=== PATIENT | female | born 1965 | race African-American/Black ===

== ENCOUNTER → 2017-10-11 15:09 | Outpatient (CLI) | payer OTHER, SELFPAY ==
[2017-10-11 17:52] LABS: Anion Gap 8 (5-15); BUN 14 mg/dL (7-18); BUN/Creat Ratio 18.3 RATIO (10-20); Calcium,Total 8.5 mg/dL (8.5-10.1); Chloride 104 mmol/L (98-107); Creatinine, Serum 0.77 mg/dL (0.55-1.02); EST Glomerular Filtration Rate 84 mL/min (>60); Est Glom Filt Rate - Afr Amer 102 mL/min (>60); Glucose 161 mg/dL (74-106); Sodium Level 140 mmol/L (136-145); Thyroid Stim Hormone (TSH) 0.26 uIU/mL (0.358-3.74)
[2017-10-11 17:58] LABS: Vitamin D,25 Hydroxy 25.7 ng/mL (29.95-100.01)
== END ==
PROVIDERS: Family Provider Family Medicine; PCP Family Medicine; Visit Provider Family Medicine
DX: E11.9 Type 2 diabetes mellitus without complications (principal); E03.9 Hypothyroidism, unspecified; E55.9 Vitamin D deficiency, unspecified
CPT/HCPCS: 36415; 80048; 82306; 84439; 84443

== ENCOUNTER → 2018-09-07 16:34 | Outpatient (CLI) | payer OTHER, SELFPAY ==
[2018-09-07 11:27] VITALS: BMI 37.6
== END ==
PROVIDERS: Family Provider Family Medicine; PCP Family Medicine; Referring Provider Physician Assistant Medical; Visit Provider Physician Assistant Medical
DX: J02.9 Acute pharyngitis, unspecified (principal)
CPT/HCPCS: 87081

== ENCOUNTER → 2018-11-09 08:26 | Outpatient (CLI) | payer OTHER, SELFPAY ==
[2018-09-07 11:27] VITALS: BMI 37.6
[2018-11-09 12:47] LABS: ALB/GLOB Ratio 0.9 RATIO (0.9-2.4); AST(SGOT) 17 U/L (15-37); Alanine Aminotransfer ALT/SGPT 27 U/L (13-56); Albumin, Serum 3.8 g/dL (3.2-5.0); Alkaline Phosphatase 65 U/L (45-117); Anion Gap 7 (5-15); BUN 10 mg/dL (7-18); BUN/Creat Ratio 16.1 RATIO (10-20); Calcium,Total 8.6 mg/dL (8.5-10.1); Chloride 109 mmol/L (98-107); Creatinine, Serum 0.62 mg/dL (0.55-1.02); EST Glomerular Filtration Rate 106 mL/min (>60); Est Glom Filt Rate - Afr Amer 129 mL/min (>60); Globulin 4.1 g/dL (2.2-4.2); Glucose 113 mg/dL (74-106); Potassium 3.7 mmol/L (3.5-5.1); Protein, Total 7.9 g/dL (6.4-8.2); Sodium Level 140 mmol/L (136-145); T4 Free Direct 1.66 ng/dL (0.76-1.46); Thyroid Stim Hormone (TSH) < 0.01 uIU/mL (0.358-3.74)
[2018-11-09 13:10] LABS: Absolute Lymphocyte Count 5.47 X10^3/ul (0.83-4.51); Absolute Neutrophil Count 2.1 X10^3/uL (2.0-7.7); Basophil# 0.01 X10^3/uL; Basophil% 0.1 % (0-1); Eosinophil# 0.14 X10^3/uL; Eosinophils% 1.7 % (0-5); Hematocrit 42.1 % (37-47); Hemoglobin 13.7 g/dl (12.0-15.0); Lymphocyte # 5.47 X10^3/ul (4.0); Lymphocyte % 67.6 % (19-41); Mean Corp Hgb Conc 32.5 g/gl (32-36); Mean Corpuscular Volume 86.1 fL (81-99); Mean Platelet Vol. 11.3 fl (6.2-12.0); Monocyte# 0.39 X10^3/uL; Monocyte% 4.8 % (0-10); Neutrophil # 2.07 X10^3/uL (2.7-7.7); Neutrophil % 25.7 % (47-70); Platelet Count 241 K/mm3 (150-450); RBC Distribution Width CV 13.3 % (11.6-14.6); RBC Distribution Width SD 41.5 fl (35.1-43.9); Red Blood Count 4.89 M/mm3 (4.2-5.4); White Blood Count 8.1 K/mm3 (4.4-11.0)
[2018-11-09 14:28] LABS: Vitamin B12 > 2000 pg/mL (211-911); Vitamin D,25 Hydroxy 19.3 ng/mL (29.95-100.01)
[2018-11-09 14:51] LABS: Differential Indicated SCAN CRITERIA MET; POSITIVE COUNT NO; POSITIVE DIFFERENTIAL YES; POSITIVE MORPHOLOGY NO
[2018-11-09 14:58] LABS: Platelet Estimate ADEQUATE (ADEQ); Red Cell Morphology NORM C+C NORMAL (NORM C&C)
== END ==
PROVIDERS: Family Provider Family Medicine; PCP Family Medicine; Visit Provider Family Medicine
DX: E11.9 Type 2 diabetes mellitus without complications (principal); E03.9 Hypothyroidism, unspecified; E53.8 Deficiency of other specified B group vitamins; E55.9 Vitamin D deficiency, unspecified
CPT/HCPCS: 36415; 80053; 82306; 82607; 84439; 84443; 85025

== ENCOUNTER → 2019-01-05 08:45 | Outpatient (CLI) | payer OTHER, SELFPAY ==
[2018-09-07 11:27] VITALS: BMI 37.6
[2019-01-05 13:54] LABS: T4 Free Direct 1.17 ng/dL (0.76-1.46); Thyroid Stim Hormone (TSH) 0.11 uIU/mL (0.358-3.74)
== END ==
PROVIDERS: Family Provider Family Medicine; PCP Family Medicine; Visit Provider Family Medicine
DX: E03.9 Hypothyroidism, unspecified (principal); D72.820 Lymphocytosis (symptomatic); E55.9 Vitamin D deficiency, unspecified
CPT/HCPCS: 36415; 84439; 84443

== ENCOUNTER → 2019-01-13 10:12 | Outpatient (CLI) | payer OTHER, SELFPAY ==
[2018-09-07 11:27] VITALS: BMI 37.6
[2019-01-20 18:19] LABS: H. PYLORI STOOL AG Negative (Negative)
== END ==
PROVIDERS: Family Provider Family Medicine; PCP Family Medicine; Visit Provider Family Medicine
DX: R10.9 Unspecified abdominal pain (principal)

== ENCOUNTER → 2019-06-21 11:13 | Outpatient (CLI) | payer OTHER, SELFPAY ==
[2018-09-07 11:27] VITALS: BMI 37.6
[2019-06-23 16:59] LABS: EBV Acute VCA IgM < 36.0 U/mL (0.0-35.9); EBV Early Antigen IgG <9.0 U/mL (0.0-8.9)
== END ==
PROVIDERS: Family Provider Family Medicine; PCP Family Medicine; Referring Provider Family Medicine; Visit Provider Family Medicine
DX: J02.9 Acute pharyngitis, unspecified (principal); J06.9 Acute upper respiratory infection, unspecified
CPT/HCPCS: 36415; 86663; 86664; 86665; 87633

== ENCOUNTER → 2019-12-20 10:57 | Outpatient (CLI) | payer OTHER, SELFPAY ==
[2018-09-07 11:27] VITALS: BMI 37.6
--- NOTE | 2019-12-20 11:07 | CT_ITS ---
STUDY: CT ABDOMEN AND PELVIS WITH CONTRAST REASON FOR EXAM: Female, 54 years old. Severe abdomen pain and bloating x 2 months, worse after eating. Hx diabetes, hysterectomy, cholecystectomy. RADIATION DOSAGE (If Supplied By Facility): CTDIvol = ( 26.01 ) mGy, DLP = ( 1114.42 ) mGycm TECHNIQUE: Transaxial images were obtained from the dome of the diaphragm to the symphysis pubis without oral contrast. 100mL Isovue 370 was administered. Sagittal and coronal images were reconstructed. Individualized dose optimization techniques were used for this CT. COMPARISON: Comparison is made with prior examination dated April 14, 2014. FINDINGS: The visualized lung bases are unremarkable. The visualized portions of the heart are within normal limits. There is decreased attenuation of the liver consistent with steatosis. Mild hepatomegaly. The patient is status post cholecystectomy. Normal spleen. Normal pancreas. Normal bilateral adrenal glands. Normal right kidney. 1 cm cyst in the upper pole of the left kidney. Normal visualized stomach. Normal small intestine. Normal colon. The appendix is visualized and appears normal. Normal abdominal aorta. Normal inferior vena cava. Normal retroperitoneum. Normal urinary bladder. There is absence of the uterus consistent with a prior hysterectomy. Follicles are seen in both ovaries. There is evidence of prior umbilical hernia repair with a mesh. Normal osseous structures. CT/Abdomen/Pelvis WITH Contrast IMPRESSION: No acute abnormality is seen. Mild hepatomegaly with fatty infiltration of the liver. Status post cholecystectomy. Electronically Signed: Rahat Barnes, at 14:47 EDT , Service support ,
[2019-12-20 13:46] LABS: CREATININE FINGERSTICK 0.8 mg/dL (0.55-1.02); EGFR FINGERSTICK > 60.0000 mL/min (>60)
== END ==
PROVIDERS: PCP Family Medicine; Referring Provider Family Medicine; Visit Provider Family Medicine
DX: R10.9 Unspecified abdominal pain (principal); R14.0 Abdominal distension (gaseous)
CPT/HCPCS: 74177; Q9967

== ENCOUNTER → 2020-10-16 09:00 | Outpatient (CLI) | payer OTHER, SELFPAY ==
[2018-09-07 11:27] VITALS: BMI 37.6
[2020-10-16 10:19] LABS: Absolute Lymphocyte Count 4.41 X10^3/uL (0.83-4.51); Basophil# 0.03 X10^3/uL; Basophil% 0.4 % (0-1); Eosinophil# 0.19 X10^3/uL; Eosinophils% 2.4 % (0-5); Hemoglobin 13.3 g/dL (12.0-15.0); Lymphocyte # 4.41 X10^3/ul (4.0); Lymphocyte % 54.9 % (19-41); Mean Corp Hgb Conc 32.4 g/dL (32-36); Mean Corpuscular Volume 89.3 fL (81-99); Mean Platelet Vol. 10.7 fl (6.2-12.0); Monocyte# 0.35 X10^3/uL; Monocyte% 4.4 % (0-10); NRBC Flagged by Analyzer 0 % (0-5); Neutrophil # 3.03 X10^3/uL (2.7-7.7); Neutrophil % 37.7 % (47-70); Platelet Count 264 K/mm3 (150-450); RBC Distribution Width CV 13.6 % (11.6-14.6); RBC Distribution Width SD 44.1 fl (35.1-43.9); Red Blood Count 4.59 M/mm3 (4.2-5.4)
[2020-10-16 10:57] LABS: ALB/GLOB Ratio 1.2 RATIO (0.9-2.4); AST(SGOT) 14 U/L (15-37); Alanine Aminotransfer ALT/SGPT 23 U/L (13-56); Albumin, Serum 3.8 g/dL (3.2-5.0); Alkaline Phosphatase 58 U/L (45-117); Anion Gap 6 (5-15); BUN 10 mg/dL (7-18); BUN/Creat Ratio 15.4 RATIO (10-20); Chloride 106 mmol/L (98-107); Cholesterol 156 mg/dL (200); Creatinine, Serum 0.65 mg/dL (0.55-1.02); EST Glomerular Filtration Rate 100 mL/min (>60); Est Glom Filt Rate - Afr Amer 121 mL/min (>60); Globulin 3.3 g/dL (2.2-4.2); Glucose 113 mg/dL (74-106); High Density Lipoprotein 38 mg/dL; Potassium 3.9 mmol/L (3.5-5.1); Protein, Total 7.1 g/dL (6.4-8.2); Sodium Level 140 mmol/L (136-145); T4 Free Direct 1.08 ng/dL (0.76-1.46); Triglycerides 159 mg/dL; Very Low Density Lipoprotein 32 mg/dL (5-40)
[2020-10-16 11:32] LABS: Vitamin B12 590 pg/mL (211-911)
[2020-10-16 13:48] LABS: Vitamin D,25 Hydroxy 32.4 ng/mL
== END ==
LOC: MTLAB 09:02
PROVIDERS: PCP Family Medicine; Referring Provider Family Medicine; Visit Provider Family Medicine
DX: E11.9 Type 2 diabetes mellitus without complications (principal); E53.8 Deficiency of other specified B group vitamins; E55.9 Vitamin D deficiency, unspecified; D72.820 Lymphocytosis (symptomatic)
CPT/HCPCS: 36415; 80053; 80061; 82306; 82607; 84439; 84443; 85025

== ENCOUNTER 2020-10-18 18:54 | Emergency (ER) | payer OTHER, SELFPAY ==
[2018-09-07 11:27] VITALS: BMI 37.6
[2020-10-18 18:55] VITALS: BP 163/98; PULSE 106; RESP 20; TEMP 36.4; O2SAT 96; BMI 38.0
--- NOTE | 2020-10-18 19:55 | RAD_ITS ---
STUDY: X-RAY - RIGHT KNEE REASON FOR EXAM: Female, 55 years old. FELL IN PARKING LOT. PAIN MEDIAL TO PATELLA AND JUST INFERIOR TECHNIQUE: 4 view(s) of the knee. COMPARISON: None. FINDINGS: Normal visualized distal femur. Normal visualized proximal tibia and fibula. Normal proximal tibiofibular articulation. There is no demonstrated fracture. There is severe degenerative arthrosis of the medial femorotibial compartment with severe joint space narrowing. There is moderate degenerative arthrosis of the lateral femorotibial compartment with moderate joint space narrowing. There is severe degenerative arthrosis of the patellofemoral articulation. There is no demonstrated joint effusion. Mild soft tissue swelling is present anterior to the patellar tendon. RAD/Knee 4 or More Views IMPRESSION: 1. Degenerative arthrosis. Mild soft tissue swelling is present anterior to the patellar tendon. Electronically Signed: Claude Tamez MD at 21:00 EDT , Service support ,
--- NOTE | 2020-10-18 19:55 | RAD_ITS ---
STUDY: X-RAY - RIGHT SHOULDER REASON FOR EXAM: Female, 55 years old. Injury/Pain TECHNIQUE: 4 view(s) of the shoulder. COMPARISON: None. FINDINGS: There is severe degenerative arthrosis of the glenohumeral articulation. Normal acromioclavicular joint. Normal acromion. No visualized acute fracture or displaced bony fragment. The soft tissue structures are unremarkable. Normal visualized pulmonary apex. RAD/Shoulder min 2 Views IMPRESSION: Severe right shoulder DJD Electronically Signed: Claude Tamez MD at 21:01 EDT , Service support ,
--- NOTE | 2020-10-18 20:00 | ED.RN ---
[facility] was called when patient was triaged regarding workman's comp case. no information was on file for drug screen or follow up in [facility] intranet database for the patient's employer and actions to be taken. [facility] decided to come in to figure out next steps for this situation.
--- NOTE | 2020-10-18 21:46 | ED.DCSUM_ITS ---
- ER Visit Summary Date of Service: 10/18/20 Chief Complaint: Fall History of Present Illness: The patient is a 55 F who presents after a fall that occurred today. Patient states she was walking through the parking lot at work when she tripped and fell. Patient states she has pain in her right shoulder an d right knee. Patient also admits to some mild pain in her left knee, neck, and chest. Patient describes the pain as sharp and burning. Patient states her right knee feels weak. Patient denies any paresthesias. Patient denies any head injury or loss of consciousness. Patient denies any other injuries. Physical Examination: Vital signs are stable. Patient is afebrile. Patient is in no acute distress. Oral mucosa is pink and moist. Neck is supple. Trachea is midline. There is good range of motion of the cervical spine. Musculoskeletal exam reveals tenderness over the right shoulder and right knee. There is no obvious deformity noted. Range of motion was limited in all motions of the right shoulder and right knee. There is no effusion. There is no edema or ecchymosis. There is also some mild tenderness over the left knee. There is good range of motion. There is no laxity appreciated. There is no effusion. Test Results: X-rays of the right shoulder were obtained. There are 4 views. On my interpretation, there is no acute fracture. There is no dislocation. There is no soft tissue swelling. There are degenerative changes noted. Radiologist also interpreted the x-rays and agrees. X-rays of the right knee were obtained. There are 4 views. On my interpretation, there is no acute fracture. There is no dislocation. There is no soft tissue swelling. There are degenerative changes noted. Radiologist also interpreted the x-rays and agrees. Emergency Department Course and Treatment: Patient was advised of her findings. Patient was instructed to use ice to the area. Patient was instructed to follow-up with her primary care physician in 5 to 7 days. Patient was ins tructed to take Tylenol or ibuprofen as needed for pain. Patient and family understood and were agreeable with the plan. All questions were answered. Disposition: Discharge Impression: 1. Right shoulder contusion 2. Right knee contusion This note was generated with ulikeation software. It may contain incorrect words, spelling, and punctuation that were not noted in review of the chart prior to signing ED Disposition - Plan for ED Patient: Disposition: Home or Assisted Living Diagnosis: Contusion, knee, Contusion of shoulder Instructions: ED Contusion, Lower Extremity, ED Mechanical Fall, ED Shoulder Contusion Referrals: Damian Grace MD [Primary Care Provider] - 5-7 Days
[2020-10-18 22:07] VITALS: BP 135/86; PULSE 100; RESP 15; O2SAT 98
== END 2020-10-18 22:07 | disposition home or self-care (01) ==
PROVIDERS: Emergency Provider Emergency Medicine; PCP Family Medicine
DX: S40.011A Contusion of right shoulder, initial encounter (principal); S80.01XA Contusion of right knee, initial encounter; W01.0XXA Fall on same level from slipping, tripping and stumbling without subsequent striking against object, initial encounter; Y93.01 Activity, walking, marching and hiking; Y92.481 Parking lot as the place of occurrence of the external cause; Y99.9 Unspecified external cause status; E11.9 Type 2 diabetes mellitus without complications; Z79.899 Other long term (current) drug therapy; Z79.84 Long term (current) use of oral hypoglycemic drugs; Z79.82 Long term (current) use of aspirin
CPT/HCPCS: 73030; 73564; 99282

== ENCOUNTER 2021-01-14 08:30 | Outpatient (RCR) | payer OTHER, SELFPAY ==
[2020-12-06 09:11] VITALS: BMI 38.0
--- NOTE | 2020-12-20 10:12 | HP.OTEVAL_ITS ---
Patient's Visit Information ADELAIDA SCHOFIELD is a 55 year old F, referred to Occupational Therapy by MOHSEN Seaman, with a diagnosis of left MF trigger finger. Date of Evaluation: 12/19/20 Occupational Therapist: ZACHARY Leblanc/Ion, LILLY - Subjective This 55 year old female was seen for OT eval with dx of left MF trigger finger. Pt reported that she fell at her workplace; she reported that she tripped over a twig in the parking lot, but was unable to right herself. Pt noticed 2 days after that she was unable to extend and straighten her L Middle finger. Pt reported increase pain in the morning, then it increased during the day. Pt reported that typing increases the pain and decreases ROM. Pt reported an increase in numbness during the day. Pt stated that it catches when typing, and/or doing other tasks that require the use of her hands. - ADLs Comments: Typing, triggering with more flexion. 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 Goal:: pt will report a 50% reduction in numbness at the PIP joint by d/c. - Rehabilitation General Assessment: Pt demonstrating full ROM of left digits, noticeable trigger with the active movement of left MF. This limits pts ind. with ADLs and IADLS as well as work tasks. Pt would benefit skilled therapy services 2-3x a weeks for 4-6 weeks. Today, therapist educated pt on diagnosis and icing to decrease the trigger and increase the functionality of her MF. Kate JAVED, LILLY supervised, reviewed and approved doc. Rehabilitation Potential: Good - Anticipated Interventions A/AAROM/PROM, Strengthening, Triggerpoint Release, Modalities, Orthoses, Fine Motor Coord/Piyush, Home Program - Visit Plan Frequency: 2x /Week Duration: 4-6 Weeks TEXT: Thank you for the opportunity to evaluate your patient. For Medicare and Medicare HMO plans, please review the plan of care and approve it. It will need to be FAXED BACK to us at [phone] for Medicare purposes. Please let me know if there are questions or concerns regarding this plan of care. Physician Signature: Date:
== END 2021-01-14 19:00 | disposition home or self-care (01) ==
LOC: OT 08:30
PROVIDERS: PCP Family Medicine; Referring Provider Physician Assistant Surgical; Visit Provider Physician Assistant Surgical
DX: M65.332 Trigger finger, left middle finger (principal)
CPT/HCPCS: 97035; 97140; 97166

== ENCOUNTER 2021-05-15 13:10 | Emergency (ER) | payer OTHER, SELFPAY ==
[2021-05-15 13:12] VITALS: BP 163/106; PULSE 98; RESP 24; TEMP 37; O2SAT 99; BMI 32.8
--- NOTE | 2021-05-15 14:15 | RAD_ITS ---
STUDY: X-RAY CHEST REASON FOR EXAM: Female, 56 years old. Chest pain. Headaches. TECHNIQUE: Single AP portable view of the chest. COMPARISON: Comparison is made with prior study dated 07/22/2016. FINDINGS: EKG electrodes are seen. The lungs are clear and expanded. There is no demonstrated pleural abnormality. Normal size heart. Normal mediastinum and iliana. Normal visualized pulmonary arteries. There is atherosclerotic tortuosity of the aortic arch and descending thoracic aorta. There are diffuse degenerative changes of the visualized thoracic spine. There is degenerative osteoarthritis of the bilateral shoulders. There is no demonstrated abnormality of the visualized soft tissue structures of the upper abdomen. RAD/Chest 1 View (Portable) IMPRESSION: Stable examination. No acute abnormality is seen. Electronically Signed: Rahat Barnes MD at 15:05 EDT , Service support ,
--- NOTE | 2021-05-15 14:15 | EKG12_ITS ---
Test Reason : SOB Blood Pressure : / mmHG Vent. Rate : 075 BPM Atrial Rate : 075 BPM P-R Int : 172 ms QRS Dur : 086 ms QT Int : 404 ms P-R-T Axes : 052 -29 002 degrees QTc Int : 451 ms Normal sinus rhythm with sinus arrhythmia Normal ECG Confirmed by RODRIGO BUTCHER, RIVKA ([id number]), metropolitan editor ROMI BLACKMON ([id number]) on 05/19/2021 10:16:46 A M Referred By: WILLY Confirmed By:LEE WALLACE MD
--- NOTE | 2021-05-15 14:17 | EDS_ITS ---
HPI History of Present Illness Chief Complaint: Shortness of Breath Informant: patient Narrative Narrative: Very pleasant 56-year-old female presents to the emergency department chief complaint of dyspnea. Patient states that yesterday morning she woke with a headache and a sensation that she could not take a deep breath. She states that that has continued onset today. 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 She went got tested this morning and her Covid and influenza swabs were negative. She denies any significant cough, no chest pain, no fevers. She has not felt like this in the past. She has a history of Graves' disease is currently on levothyroxine. Non- smoker. It is noted that the patient underwent cardiac catheterization in 2017 with angiographically normal arteries. [facility] Medical History Acute frontal sinusitis, unspecified Diabetes Lab test negative for COVID-19 virus Shortness of breath Thyroid disease URI (upper respiratory infection) Home Medications metformin 500 mg PO BID 07/22/16 [History Last Taken 07/20/16] cyanocobalamin (vitamin B-12) 2,500 mcg PO QODAY 10/18/20 [History Last Taken Unknown] cholecalciferol (vitamin D3) 10 mcg (400 unit) capsule 10 mcg PO QODAY 10/22/20 [History Last Taken Unknown] levothyroxine [Synthroid] 175 mcg PO DAILY 05/15/21 [History Last Taken Unknown] multivitamin 1 tab PO DAILY 05/15/21 [History Last Taken Unknown] vitamin B complex 1 tab PO DAILY 05/15/21 [History Last Taken Unknown] Allergy/AdvReac Type Severity Reaction Status Date / Time acetaminophen [From Vicodin] Allergy Unknown Verified 05/15/21 12:25 hydrocodone Allergy Swelling Verified 05/15/21 12:25 hydromorphone HCl Allergy Unknown Verified 05/15/21 12:25 [From Dilaudid] oxycodone [Oxycodone] Allergy Swelling Verified 05/15/21 12:25 Family History Mother Heart murmur Thyroid disorder Father Colon cancer Brother Colon cancer Other Hypertension Surgical History H/O: section History of cholecystectomy History of hernia repair History of hysterectomy History of thyroidectomy Social History (Updated 05/15/21 @ 14:[address] Naren Hudson DO) Smoking Status: Never smoker alcohol intake: never substance use type: does not use ROS ROS ED Constitutional Constitutional ED: Denies chills, fever(s), sweats or weight loss Eyes Eyes: Denies change in vision or diplopia ENT ENT ED: Denies ear pain, rhinorrhea or sore throat Cardiovascular Cardiovascular: Denies chest pain, orthopnea, palpitations or racing heartbeat Respiratory/Chest Respiratory/Chest: Reports dyspnea and dyspnea on exertion; Denies cough or orthopnea Gastrointestinal Gastrointestinal: Denies abdominal pain, diarrhea, nausea or vomiting Genitourinary Genitourinary ED: Denies dysuria, hematuria or urinary frequency Musculoskeletal Musculoskeletal: Denies arthralgias or myalgias Integumentary Denies abscess or rash Neurologic Neurologic: Denies headache(s) or weakness Psychiatric Psychiatric: Denies anxiety, depression, suicidal ideation or suicidal thoughts Endocrine Endocrinology: Denies polydipsia, polyphagia or polyuria Allergic/Immunologic Allergic/Immunologic ED: Denies mouth swelling, tongue swelling or urticaria EXAM Physical Exam Const Vital Signs: 05/15/21 13:12 05/15/21 14:51 05/15/21 15:46 Temperature 98.6 F Temperature Source Temporal Pulse Rate 98 82 Respiratory Rate 24 H 19 H Respiratory Effort Short of Breath Respiratory Depth Normal Respiratory Pattern Normal Normal Blood Pressure 163/106 H Blood Pressure Mean 125 Pulse Ox 99 Oxygen Delivery Method Room Air Room Air Positive well nourished and well developed General Appearance ED: well developed HEENT Reports normocephalic, head/scalp atraumatic, TM's clear and moist mucous membranes atraumatic Tympanic Membrane ED: Yes TM's clear Eyes PERRL and EOMs intact bilaterally Neck no lymphadenopathy, supple and no JVD Resp normal respiratory effort and clear to auscultation bilaterally Cardio regular rate, regular rhythm and no murmurs GI normal to inspection, nondistended, normoactive bowel sounds and non-tender Auscultation: normoactive bowel sounds Palpation: soft Back/Spine no CVA tenderness, normal ROM and normal to inspection Extremity normal to inspection General Extremety ED: Negative for edema General Extremity: Negative for edema Neuro oriented x3 and CN's II-XII intact bilaterally Sensorium / Orientation: alert Motor Exam: strength 5/5 throughout Psych mental status grossly normal Mood & Affect: Negative for depressed or tearful Skin no rashes or lesions noted and no wounds MDM MDM MDM Narrative Medical decision making narrative: My interpretation of the chest x-ray is no acute process White count 9.7 hemoglobin 14.1 with platelet count of 280. D-dimer is negative. TSH 0.63. Troponin 45 glucose 144. Patient had no events on the monitor EKG is grossly unchanged from 4 years ago. She ambulates without hypoxemia or significantly labored breathing. She had no change in her symptoms with a DuoNeb. At this point I do not see a clear etiology for the patient's chief complaint of inability to take a deep breath. I do not see anything the obvious emergent that would require hospitalization. She has follow-up with her primary care doctor tomorrow. Lab Data Attestation: I reviewed the patient's lab results. Labs: Laboratory Results - last 24 hr 05/15/21 05/15/21 05/15/21 14:31 14:31 14:31 WBC 9.7 RBC 4.94 Hgb 14.1 Hct 43.2 MCV 87.4 MCH 28.5 MCHC 32.6 RDW Std Deviation 42.5 RDW Coeff of Bigg 13.3 Plt Count 280 MPV 10.5 Immature Gran % (Auto) 0.200 Neut % (Auto) 39.5 L Lymph % (Auto) 52.0 H Quay % (Auto) 5.7 Eos % (Auto) 2.3 Baso % (Auto) 0.3 Absolute Neuts (auto) 3.8 Absolute Lymphs (auto) 5.05 H Nucleated RBC % 0 Differential Comment SCANNED D-Dimer Quant (PE/DVT) <= 0.27 Sodium 140 Potassium 3.5 Chloride 105 Carbon Dioxide 26.0 Anion Gap 9 BUN 9 Creatinine 0.75 Estim Creat Clear Calc 69.28 Est GFR (MDRD) Af Amer 103 Est GFR (MDRD) Non-Af 86 BUN/Creatinine Ratio 12.1 Glucose 144 H Calcium 8.9 Total Bilirubin 0.50 AST 14 L ALT 27 Alkaline Phosphatase 70 Troponin I High Sens 45 Total Protein 8.1 Albumin 3.7 Globulin 4.4 H Albumin/Globulin Ratio 0.8 L TSH 0.63 Radiography Diagnostic Testing: Clinical Impression(s) from Imaging Studies Chest X-Ray 05/15/21 14:15 IMPRESSION: Stable examination. No acute abnormality is seen. Electronically Signed: Rahat Barnes MD at 15:05 EDT , Service support , EKG Initial EKG: Attestation: I personally reviewed and interpreted this EKG as follows: Comments: Normal sinus rhythm with a ventricular rate of 75 bpm. Prior EKG tracings: available for review Prior: Unchanged Discharge Plan Triage Chief Complaint: Shortness of Breath ED Provider: Naren Hudson Dx/Rx/DC Orders Clinical Impression: Acute dyspnea Instructions: ED Dyspnea Prescriptions: No Action cholecalciferol (vitamin D3) 10 mcg (400 unit) capsule 10 mcg PO QODAY RF: 0 metformin 500 MG tablet,ER samantha.retention 24 hr 500 mg PO BID RF: 0 cyanocobalamin (vitamin B-12) 2,500 MCG lozenge 2,500 mcg PO QODAY RF: 0 multivitamin Tablet 1 tab PO DAILY RF: 0 levothyroxine [Synthroid] 175 mcg tablet 175 mcg PO DAILY RF: 0 vitamin B complex Tablet 1 tab PO DAILY RF: 0 Primary Care Provider: Damian Grace Referrals: Damian Grace MD [Primary Care Provider] - Activity Restrictions/Additional Instructions: Your chest x-ray was normal. EKG has been unchanged since 2017 and a negative troponin level. Your D-dimer was negative. Your TSH was 0.63. Your CBC and CMP showed a glucose of 144 but otherwise negative. Disposition Disposition: Home, Self Care
[2021-05-15 14:45] LABS: Absolute Lymphocyte Count 5.05 X10^3/uL (0.83-4.51); Absolute Neutrophil Count 3.8 X10^3/uL (2.0-7.7); Basophil# 0.03 X10^3/uL; Basophil% 0.3 % (0-1); Eosinophil# 0.22 X10^3/uL; Eosinophils% 2.3 % (0-5); Hematocrit 43.2 % (37-47); Hemoglobin 14.1 g/dL (12.0-15.0); Lymphocyte # 5.05 X10^3/ul (0.83-4.51); Mean Corp Hgb Conc 32.6 g/dL (32-36); Mean Corpuscular Hgb 28.5 pg (27.0-32.0); Mean Corpuscular Volume 87.4 fL (81-99); Mean Platelet Vol. 10.5 fl (6.2-12.0); Monocyte# 0.55 X10^3/uL; Monocyte% 5.7 % (0-10); NRBC Flagged by Analyzer 0 % (0-5); Neutrophil # 3.84 X10^3/uL (2.7-7.7); Neutrophil % 39.5 % (47-70); POSITIVE DIFFERENTIAL YES; Platelet Count 280 K/mm3 (150-450); RBC Distribution Width CV 13.3 % (11.6-14.6); RBC Distribution Width SD 42.5 fl (35.1-43.9); Red Blood Count 4.94 M/mm3 (4.2-5.4); White Blood Count 9.7 K/mm3 (4.4-11.0)
[2021-05-15 14:50] LABS: Differential Indicated SCAN CRITERIA MET
[2021-05-15 14:51] VITALS: O2SAT 99
[2021-05-15 15:04] LABS: D-Dimer Quantitative (DVT/PE) <= 0.27 FEU/ug/m (0.27-0.49)
[2021-05-15 15:08] LABS: ALB/GLOB Ratio 0.8 RATIO (0.9-2.4); AST(SGOT) 14 U/L (15-37); Alanine Aminotransfer ALT/SGPT 27 U/L (13-56); Albumin, Serum 3.7 g/dL (3.2-5.0); Alkaline Phosphatase 70 U/L (45-117); Anion Gap 9 (5-15); BUN 9 mg/dL (7-18); BUN/Creat Ratio 12.1 RATIO (10-20); Calcium,Total 8.9 mg/dL (8.5-10.1); Chloride 105 mmol/L (98-107); Creatinine, Serum 0.75 mg/dL (0.55-1.02); EST Glomerular Filtration Rate 86 mL/min (>60); Est Glom Filt Rate - Afr Amer 103 mL/min (>60); Estimated Creatinine Clearance 69.28 ml/min; Globulin 4.4 g/dL (2.2-4.2); Glucose 144 mg/dL (74-106); Potassium 3.5 mmol/L (3.5-5.1); Protein, Total 8.1 g/dL (6.4-8.2); Sodium Level 140 mmol/L (136-145); Thyroid Stim Hormone (TSH) 0.63 uIU/mL (0.358-3.74); Troponin-I HS 45 pg/mL (3.0-54.0)
[2021-05-15 15:20] VITALS: O2SAT 99
[2021-05-15 15:43] LABS: Differential Comment SCANNED
[2021-05-15] MEDS: Ipratropium/Albuterol Sulfate 3 ML AMPUL.NEB INHALATION (15:45)
[2021-05-15 15:46] VITALS: PULSE 82; RESP 19
[2021-05-15 16:07] VITALS: BP 151/107; PULSE 88; RESP 16; O2SAT 99
== END 2021-05-15 16:08 | disposition home or self-care (01) ==
PROVIDERS: Emergency Provider Emergency Medicine; PCP Family Medicine
DX: R06.02 Shortness of breath (principal); E11.9 Type 2 diabetes mellitus without complications; E05.00 Thyrotoxicosis with diffuse goiter without thyrotoxic crisis or storm; Z79.84 Long term (current) use of oral hypoglycemic drugs; Z20.822 Contact with and (suspected) exposure to COVID-19
CPT/HCPCS: 71045; 80053; 84443; 84484; 85025; 85379; 93005; 94640; 99284; A4216

== ENCOUNTER → 2021-05-16 | Outpatient (CLI) | payer OTHER, SELFPAY | END | disposition home or self-care (01) | LOC: LABSPEC 12:57 | PROVIDERS: PCP Family Medicine; Visit Provider Family Medicine | DX: Z20.822 Contact with and (suspected) exposure to COVID-19 (principal) | CPT/HCPCS: 87635; U0005; U0003 ==

== ENCOUNTER → 2022-03-23 | Outpatient (CLI) | payer OTHER, SELFPAY ==
[2022-03-23 12:22] LABS: Absolute Lymphocyte Count 4.35 X10^3/uL (0.83-4.51); Absolute Neutrophil Count 3.1 X10^3/uL (2.0-7.7); Basophil# 0.04 X10^3/uL; Basophil% 0.5 % (0-1); Eosinophils% 2.5 % (0-5); Hematocrit 43.9 % (37-47); Lymphocyte # 4.35 X10^3/ul (0.83-4.51); Lymphocyte % 54.4 % (19-41); Mean Corp Hgb Conc 31.9 g/dL (32-36); Mean Corpuscular Hgb 28.5 pg (27.0-32.0); Mean Corpuscular Volume 89.2 fL (81-99); Mean Platelet Vol. 11.3 fl (6.2-12.0); Monocyte# 0.34 X10^3/uL; Monocyte% 4.3 % (0-10); NRBC Flagged by Analyzer 0 % (0-5); Neutrophil # 3.06 X10^3/uL (2.7-7.7); Neutrophil % 38.2 % (47-70); Platelet Count 253 K/mm3 (150-450); RBC Distribution Width CV 13.2 % (11.6-14.6); RBC Distribution Width SD 43.8 fl (35.1-43.9); Red Blood Count 4.92 M/mm3 (4.2-5.4)
[2022-03-23 15:52] LABS: Anion Gap 9 (5-15); BUN 15 mg/dL (7-18); Calcium,Total 9.4 mg/dL (8.5-10.1); Chloride 106 mmol/L (98-107); Creatinine, Serum 0.79 mg/dL (0.55-1.02); EST Glomerular Filtration Rate 80 mL/min (>60); Est Glom Filt Rate - Afr Amer 97 mL/min (>60); Glucose 197 mg/dL (74-106); Magnesium 1.9 mg/dL (1.6-2.6); Potassium 3.9 mmol/L (3.5-5.1); Sodium Level 140 mmol/L (136-145); T4 Free Direct 0.95 ng/dL (0.76-1.46); Thyroid Stim Hormone (TSH) 0.48 uIU/mL (0.358-3.74)
== END | disposition home or self-care (01) ==
LOC: MTLAB 10:51
PROVIDERS: PCP Family Medicine; Referring Provider Family Medicine; Visit Provider Family Medicine
DX: R00.2 Palpitations (principal); E11.65 Type 2 diabetes mellitus with hyperglycemia; E03.9 Hypothyroidism, unspecified
CPT/HCPCS: 36415; 80048; 83735; 84439; 84443; 85025

== ENCOUNTER → 2022-10-29 | Outpatient (CLI) | payer OTHER, SELFPAY ==
[2022-10-29 10:03] LABS: Absolute Lymphocyte Count 4.64 X10^3/uL (0.83-4.51); Absolute Neutrophil Count 2.7 X10^3/uL (2.0-7.7); Basophil# 0.05 X10^3/uL; Basophil% 0.6 % (0-1); Eosinophil# 0.19 X10^3/uL; Eosinophils% 2.4 % (0-5); Hematocrit 43.6 % (37-47); Hemoglobin 13.9 g/dL (12.0-15.0); Lymphocyte # 4.64 X10^3/ul (0.83-4.51); Lymphocyte % 57.8 % (19-41); Mean Corp Hgb Conc 31.9 g/dL (32-36); Mean Corpuscular Volume 90.8 fL (81-99); Mean Platelet Vol. 11.1 fl (6.2-12.0); Monocyte# 0.41 X10^3/uL; Monocyte% 5.1 % (0-10); NRBC Flagged by Analyzer 0 % (0-5); Neutrophil # 2.72 X10^3/uL (2.7-7.7); Neutrophil % 33.9 % (47-70); Platelet Count 266 K/mm3 (150-450); RBC Distribution Width CV 13.4 % (11.6-14.6); RBC Distribution Width SD 45.1 fl (35.1-43.9)
[2022-10-29 10:16] LABS: Vitamin B12 494 pg/mL (211-911); Vitamin D,25 Hydroxy 50.5 ng/mL
[2022-10-29 10:23] LABS: ALB/GLOB Ratio 1.1 RATIO (0.9-2.4); AST(SGOT) 17 U/L (15-37); Alanine Aminotransfer ALT/SGPT 23 U/L (13-56); Albumin, Serum 3.7 g/dL (3.2-5.0); Alkaline Phosphatase 48 U/L (45-117); Anion Gap 2 (5-15); BUN 9 mg/dL (7-18); BUN/Creat Ratio 10.8 RATIO (10-20); Calcium,Total 8.7 mg/dL (8.5-10.1); Chloride 108 mmol/L (98-107); Cholesterol 149 mg/dL (200); Creatinine, Serum 0.83 mg/dL (0.55-1.02); EST Glomerular Filtration Rate 75 mL/min (>60); Est Glom Filt Rate - Afr Amer 91 mL/min (>60); Globulin 3.4 g/dL (2.2-4.2); Glucose 122 mg/dL (74-106); High Density Lipoprotein 36 mg/dL; Potassium 3.8 mmol/L (3.5-5.1); Protein, Total 7.1 g/dL (6.4-8.2); Sodium Level 140 mmol/L (136-145); T4 Free Direct 1.29 ng/dL (0.76-1.46); Thyroid Stim Hormone (TSH) 1.17 uIU/mL (0.358-3.74); Triglycerides 137 mg/dL; Very Low Density Lipoprotein 27 mg/dL (5-40)
== END | disposition home or self-care (01) ==
LOC: MTLAB 07:10
PROVIDERS: PCP Nurse Practitioner Family; Referring Provider Nurse Practitioner Family; Visit Provider Nurse Practitioner Family
DX: Z00.00 Encounter for general adult medical examination without abnormal findings (principal); E03.9 Hypothyroidism, unspecified; E53.8 Deficiency of other specified B group vitamins; E55.9 Vitamin D deficiency, unspecified
CPT/HCPCS: 36415; 80053; 80061; 82306; 82607; 84439; 84443; 85025

== ENCOUNTER → 2023-03-09 | Outpatient (CLI) | payer OTHER, SELFPAY | END | disposition home or self-care (01) | LOC: BFHLAB 13:49 → LABSPEC 13:50 | PROVIDERS: PCP Nurse Practitioner Family; Referring Provider Nurse Practitioner Family; Visit Provider Nurse Practitioner Family | DX: J06.9 Acute upper respiratory infection, unspecified (principal) | CPT/HCPCS: 87635 ==

== ENCOUNTER → 2024-09-05 | Outpatient (CLI) | payer OTHER, SELFPAY ==
[2024-09-05 11:01] LABS: Absolute Neutrophil Count 2.8 X10^3/uL (2.0-7.7); Basophil# 0.04 X10^3/uL; Basophil% 0.5 % (0-1); Eosinophil# 0.21 X10^3/uL; Eosinophils% 2.7 % (0-5); Hematocrit 43.8 % (37-47); Mean Corpuscular Hgb 28.5 pg (27.0-32.0); Monocyte% 5.1 % (0-10); NRBC Flagged by Analyzer 0 % (0-5); Neutrophil # 2.79 X10^3/uL (2.7-7.7); Neutrophil % 35.4 % (47-70); Platelet Count 274 K/mm3 (150-450); RBC Distribution Width CV 13.6 % (11.6-14.6); RBC Distribution Width SD 44.5 fl (35.1-43.9); Red Blood Count 4.92 M/mm3 (4.2-5.4); White Blood Count 7.9 K/mm3 (4.4-11.0)
[2024-09-06 00:05] LABS: ALB/GLOB Ratio 1.2 RATIO (0.9-2.4); AST(SGOT) 22 U/L (<=31); Alanine Aminotransfer ALT/SGPT 20 U/L (<=34); Albumin, Serum 4.2 g/dL (3.5-5.0); Alkaline Phosphatase 69 U/L (35-104); Anion Gap 14 (5-15); BUN 13 mg/dL (4-19); Calcium 9.5 mg/dL (7.6-11.0); Carbon Dioxide 23.9 mmol/L (22.0-29.0); Chloride 102 mmol/L (96-108); Cholesterol 160 mg/dL (<=200); Creatinine, Serum 0.7 mg/dL (0.6-1.0); EST Glomerular Filtration Rate 101 (>60); Globulin 3.4 g/dL (2.2-4.2); Glucose 160 mg/dL (70-99); High Density Lipoprotein 38 mg/dL; Potassium 4.2 mmol/L (3.3-5.1); Protein, Total 7.6 g/dL (5.9-8.4); Sodium Level 140 mmol/L (133-145); Thyroid Stim Hormone (TSH) 0.394 uIU/mL (0.300-4.200); Total Bilirubin 0.63 mg/dL (0.00-1.30); Triglycerides 132 mg/dL; Very Low Density Lipoprotein 26 mg/dL (5-40); Vitamin D,25 Hydroxy 26.6 ng/mL (30-100)
== END | disposition home or self-care (01) ==
LOC: MTLAB 07:51
PROVIDERS: PCP Nurse Practitioner Family; Referring Provider Nurse Practitioner Family; Visit Provider Nurse Practitioner Family
DX: Z00.01 Encounter for general adult medical examination with abnormal findings (principal); E03.9 Hypothyroidism, unspecified; E55.9 Vitamin D deficiency, unspecified
CPT/HCPCS: 36415; 80053; 80061; 82306; 84439; 84443; 85025

== ENCOUNTER → 2024-09-14 | Outpatient (CLI) | payer OTHER, SELFPAY ==
[2024-09-16 15:08] LABS: H. PYLORI STOOL AG Negative (Negative)
== END | disposition home or self-care (01) ==
LOC: LABSPEC 11:25
PROVIDERS: PCP Nurse Practitioner Family; Visit Provider Nurse Practitioner Family
DX: R10.9 Unspecified abdominal pain (principal); R19.7 Diarrhea, unspecified
CPT/HCPCS: 87338

== ENCOUNTER 2024-12-20 13:37 | Day surgery (SDC) | payer OTHER, SELFPAY ==
[2024-12-20] VITALS (7 sets, daily range): BP systolic 116–127; BP diastolic 79–90; PULSE 88–97; RESP 16–18; TEMP 36.2–36.8; O2SAT 98–100; BMI 36.8
--- NOTE | 2024-12-20 13:42 | PRE.ANES_ITS ---
ASA Classification* ASA Classification ASA Classification: 2 Assessment & Plan Anesthesia* Anesthesia Assessment Anesthesia Assessment: Discussed sedation and/or anesthesia options, risks, benefits, and alternatives with patient/parents/legal guardian/POA. Questions invited. The patient/parents/legal guardian/POA seems to understand and agrees to proceed with anesthesia plan. Reviewed the physical assessment, medical history, allergy history and patient home medications list prior to surgery/procedure/anesthetic and documented any changes. Performed airway and anesthesia risk assessments. Anesthesia Type Anesthesia Type: MAC Anesthesia Focused Assessment* Airway Assessment Mouth opens: >3 cm Mallampati Score: II Labs Anesthesia Preop lab: CBC WBC 7.9 K/mm3 (4.4-11.0) 09/05/24 08:00 09/05/24 RBC 4.92 M/mm3 (4.2-5.4) 09/05/24 08:00 09/05/24 Hgb 14.0 g/dL (12.0-15.0) 09/05/24 08:00 09/05/24 Hct 43.8 % (37-47) 09/05/24 08:00 09/05/24 Plt Count 274 K/mm3 (150-450) 09/05/24 08:00 09/05/24 CHEMISTRY Potassium 4.2 mmol/L (3.3-5.1) 09/05/24 08:00 09/05/24 Sodium 140 mmol/L (133-145) 09/05/24 08:00 09/05/24 Magnesium 1.9 mg/dL (1.6-2.6) 03/23/22 10:53 03/23/22 BUN 13 mg/dL (4-19) 09/05/24 08:00 09/05/24 Creatinine 0.7 mg/dL (0.6-1.0) 09/05/24 08:00 09/05/24 Glucose 160 mg/dL (70-99) H 09/05/24 08:00 09/05/24 TSH 0.394 uIU/mL (0.300-4.200) 09/05/24 08:00 08/13 12/03 COAG Pre-Assessment Diagnosis/Proposed Procedure Planned Operative Procedure(s): EGD/CSCOPE Anesthesia History Anesthesia History - [employer]: Anesthesia History - [employer] Hx Hospitalization No 12/15/24 10:44 Any Problems With Anesthesia Yes: 1993 THYROIDECTOMY/ 12/15/24 10:44 PARALYZED AND COULD FEEL INCISION/NO PROBLEMS SINCE THEN Cholinesterase deficiency No 12/15/24 10:44 You/Your Family Experience No 12/15/24 10:44 fever (hyperthermia) with Relationship Recent Exposure to Contagious Disease Does patient have nerve No 12/15/24 10:44 stimulator Patient instructed to have device shut off --Does patient have Pacemaker or ICD? When Was Last Pacemaker Check QUESTION #4 FULL TEXT: You/Your Family Experience fever (hyperthermia) with Anesthesia Last Oral Intake Last Oral intake: Last Oral Intake NPO since Meds taken in AM with sips of water? Meds patient instructed to take am of surgery PONV PONV - [employer]: PONV - [employer] Female Yes 12/15/24 10:44 HX of Motion Sickness No 12/15/24 10:44 HX of N/V After Surgery No 12/15/24 10:44 Non-Smoker Yes 12/15/24 10:44 Duration of Surgery greater No 12/15/24 10:44 than 60 minutes Number of Risk Factors 2 12/15/24 10:44 PONV Score Moderate Risk 12/15/24 10:44 Height & Weight Height & Weight: Anesthesia: Height & Weight Height 5 ft 3 in 05/15/21 13:12 Respiratory Assessment Respiratory Assessment - [employer]: Respiratory Tract Infection Hx - [employer] Hx Respiratory Tract Infection No 12/15/24 10:44 STOP Sleep Apnea STOP Sleep Apnea - [employer]: STOP Sleep Apnea - [employer] Hx Hypertension No 12/15/24 10:44 Hx Sleep Apnea No 12/15/24 10:44 CPAP BIPAP Do you snore loudly (louder Yes 12/15/24 10:44 than talking or can be heard Do you often feel tired/ No 12/15/24 10:44 fatigued/ sleepy during daytime? Has anyone observed you stop No 12/15/24 10:44 breathing during sleep? STOP Results Negative 12/15/24 10:44 QUESTION #5 FULL TEXT : Do you snore loudly (louder than talking or can be heard through closed doors)? 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 Specify any problems Hx of Preganancy in last 3 No 12/15/24 10:44 Months Nurse Filling Out Transfusion DSCHRIBER 12/15/24 10:44 & Questions: Date: 12/15/24 12/15/24 10:44 Time: 10:47 12/15/24 10:44 Patient unable to answer at this time (ie. confused, unrespo /Reproduction History /Reproductive History - [employer]: /Reproductive Hx- [employer] Hx Now No 12/15/24 10:44 Gestational Age (in weeks): EDC: Hx Hx Para Hx Section SAB No 12/15/24 10:44 PFSH Medical History Wears glasses Post-menopausal Diabetes Fatty liver High cholesterol Migraine headache Gastric reflux Leg cramps Non-smoker History of stress test IBS (irritable bowel syndrome) Hypothyroidism COVID-19 Encounter for screening for COVID-19 Shortness of breath Lab test negative for COVID-19 virus Acute frontal sinusitis, unspecified URI (upper respiratory infection) Thyroid disease Diabetes Home Medications ?Medication ?Instructions ?Recorded ?Last Taken ?Type metformin 500 mg 24 hr 500 mg PO DAILY 07/22/1603/28 History tablet,extended release (gastric retention) cyanocobalamin (vitamin B-12) 2,500 mcg PO QODAY 10/18 Unknown History 2,500 mcg sublingual lozenge cholecalciferol (vitamin D3) 10 10 mcg PO QODAY Unknown History mcg (400 unit) capsule levothyroxine 175 mcg tablet 175 mcg PO DAILY 05/15/21 Unknown History (Synthroid) multivitamin 1 tab PO MOWEFR 05/15/21 Unk nown History vitamin B complex 1 tab PO BROWN 05/15/21 Unknown History krill oil 500 mg capsule 500 mg PO QDAY 09/13/24 Unkn own History Allergy/AdvReac Type Severity Reaction Status Date / Time acetaminophen (From Vicodin) Allergy Unknown Verified 12/15/24 10:42 hydrocodone Allergy Swelling Verified 12/15/24 10:42 hydromorphone HCl (From Allergy Unknown Verified 12/15/24 10:42 Dilaudid) oxycodone (Oxycodone) Allergy Swelling Verified 12/15/24 10:42 Family History Mother Heart murmur Thyroid disorder Father Colon cancer Brother Colon cancer Other Hypertension Surgical History History of cardiac catheterization History of esophagogastroduodenoscopy (EGD) Hx of colonoscopy History of cholecystectomy History of thyroidectomy H/O: section History of hernia repair History of hysterectomy Social History Smoking Status: Never smoker alcohol intake: never substance use type: does not use Review of Systems (Anesthesia) ROS Narrative System reviewed and no additional complaints, except as documented.
[2024-12-20] MEDS: Lactated Ringers 1,000 ML 15 ML IV (14:14)
--- NOTE | 2024-12-20 14:23 | PCM.HP.STD ---
HPI - General General Date of Admission: 12/20/24 Date of Service: 12/20/24 Chief Complaint: GI bleed, bloating, abdominal pain HPI Narrative Pt reports history of H. pylori, was just tested and came back negative. Pt reports HB everyday, PCP prescribed Omeprazole 20mg, has not been helpful. Pt recently began intermittent fasting, reports feeling full quickly. Reports alternating bowel movements. Reports hemorrhoids with occasional bleeding. States she cannot eat milk or dairy. [facility] Medical History Wears glasses Post-menopausal Diabetes Fatty liver High cholesterol Migraine headache Gastric reflux Leg cramps Non-smoker History of stress test IBS (irritable bowel syndrome) Hypothyroidism COVID-19 Encounter for screening for COVID-19 Shortness of breath Lab test negative for COVID-19 virus Acute frontal sinusitis, unspecified URI (upper respiratory infection) Thyroid disease Diabetes Home Medications ?Medication ?Instructions ?Recorded ?Last Taken ?Type metformin 500 mg 24 hr 500 mg PO DAILY 07/22/16 12/17/24 History tablet,extended release (gastric retention) cyanocobalamin (vitamin B-12) 2,500 mcg PO QODAY 10/18/20 12/11/24 History 2,500 mcg sublingual lozenge cholecalciferol (vitamin D3) 10 10 mcg PO QODAY 10/22/20 12/11/24 History mcg (400 unit) capsule levothyroxine 175 mcg tablet 175 mcg PO DAILY 05/15/21 12/19/24 History (Synthroid) multivitamin 1 tab PO MOWEFR 05/15/21 12/11/24 History vitamin B complex 1 tab PO BROWN 05/15/21 12/11/24 History krill oil 500 mg capsule 500 mg PO QDAY 09/13/24 12/11/24 History Allergy/AdvReac Type Severity Reaction Status Date / Time acetaminophen (From Vicodin) Allergy Unknown Verified 12/20/24 14:02 hydrocodone Allergy Swelling Verified 12/20/24 14:02 hydromorphone HCl (From Allergy Unknown Verified 12/20/24 14:02 Dilaudid) oxycodone (Oxycodone) Allergy Swelling Verified 12/20/24 14:02 Family History Mother Heart murmur Thyroid disorder Father Colon cancer Brother Colon cancer Other Hypertension Surgical History History of cardiac catheterization History of esophagogastroduodenoscopy (EGD) Hx of colonoscopy History of cholecystectomy History of thyroidectomy H/O: section History of hernia repair History of hysterectomy Social History Smoking Status: Never smoker alcohol intake: never substance use type: does not use ROS Constitutional Constitutional: Denies fatigue, fever(s), poor appetite, weight gain or weight loss Gastrointestinal Gastrointestinal: Denies belching, bloating, change in bowel habits, change in stool character, chewing difficulty, coffee ground emesis, constipation, cramping, diarrhea, dyspepsia, dysphagia, early satiety, excessive flatus, fecal incontinence, heartburn, hematemesis, hematochezia, hemorrhoids, loose stools, melena, nausea, odynophagia, rectal bleeding, tenesmus, vomiting or weight changes Vital Signs Vital Signs Vital Signs: 12/20/24 14:04 12/20/24 14:06 Temperature 98.3 F Temperature Source Temporal Pulse Rate 96 Respiratory Rate 18 Respiratory Pattern Normal Blood Pressure 126/86 H Blood Pressure Mean 99 Blood Pressure Source Monitor Blood Pressure Position Semi-Fowlers Blood Pressure Location Right Arm Pulse Ox 100 Oxygen Delivery Method Room Air Weight Weight: 208 lb Body Mass Index (BMI) 36.8 Physical Exam Const alert, oriented x3, no apparent distress and healthy appearing General Appearance: cooperative GI normal to inspection, nondistended, normoactive bowel sounds, soft to palpation, non-tender and non-distended Percussion: normal to percussion Rectal Exam: deferred Assessment & Plan Assessment/Plan (1) GI bleed: PLAN: ROS Const Constitutional: No fatigue, fever(s) or weight change ENT ENT: No difficulty swallowing Gastro GI: Positive for constipation, diarrhea, heartburn and Blood in stool; No abdominal pain, belching, bloating, change in bowel habits, change in stool character, coffee ground emesis, cramping, difficulty swallowing, feeling full early, excessive flatus, incontinent of stools, Vomiting blood/hematemesis, loose stools, Black,tarry stools, nausea/dyspepsia, pain with swallowing, vomiting or other Musc Musculoskeletal: No joint pain Skin Skin: No yellowing of the eye or itchy eyes Psych Psychiatric: No anxiety and No depression Endo Endocrine: No fatigue or weight change Aller/Imm Allergy/Immunologic: No itchy eyes Jd/Lymp Hematologic/Lymphatic: No easy bleeding or easy bruising Exam Const General: cooperative, healthy appearing and no acute distress Nutritional Appearance: obese Orientation: alert, awake and oriented x3 HENMT Head: normal to inspection Ears: hearing grossly normal bilaterally, external ears normal, TM's normal bilaterally and EAC's normal Nose: external nose normal, nares normal, septum normal and nasal discharge clear Face and sinus: normal facial exam, sinuses nontender and face symmetric Throat: posterior oropharynx normal, tonsils normal, uvula midline and no postnasal drainage Eyes General: appearance normal, both eyes and all related structures Neck Neck: normal visual inspection, full ROM, no lymphadenopathy, no meningeal signs and supple Neck mass: No Thyroid: thyroid normal Lymphatic: no lymphadenopathy noted Chest Chest palpation & inspection: normal inspection of the chest Resp Effort & Inspection: normal respiratory effort and able to speak in complete sentences Auscultation: Bilateral: Clear to Auscultation Cardio Palpation: normal PMI Rate: tachycardic Rhythm: regular rhythm Heart Sounds: S1 normal, S2 normal, no gallops, no murmurs and no rubs Pulses: radial pulses present GI Inspection: normal to inspection Palpation: soft and no hepatosplenomegaly Skin General: no rashes or lesions noted Neuro General: patient alert, patient awake, patient oriented x3 and gait normal Cognition: normal cognition Speech: speech normal Gait: normal gait Motor: muscle tone normal throughout Sensory Exam: no sensory deficits noted Psych Appearance: grossly normal Mental Status: mental status grossly normal Mood: congruent mood Affect: normal affect Speech and Movement: speech and movement normal Attitude: cooperative Thought Process: normal Thought Content: normal Judgment: judgment good Assessment and Plan Assessment and Plan (1) Gastroesophageal reflux disease: (2) GI bleed: Status: Acute Plan: She will undergo an upper and lower endoscopy. She does not history of stomach cancer colon. Hip. She is also having some abdominal pain along with lower GI bleeding. The diagnosis does include recurrent H. pylori,, diverticulosis, gastritis, diverticulitis, ischemic colitis, diverticular bleeding.
[2024-12-20 14:37] LABS: Bedside Glucose 98 mg/dL (74-106)
--- NOTE | 2024-12-20 14:45 | EGD_PTH ---
PATIENT: ADELAIDA SCHOFIELD LOC: EN U#:[id number] AGE/SX: 59/F ROOM: RE12/20/[address]: Dr. Kevin Childers DO : 1965 BED: DIS: 12/20/2024 SPEC #: [id number] RECD: 12/21/24 07:37 STATUS: JESSE REDeirdre #: [id number] CASIMIRO: 12/20/24 14:[address]: Kevin Childers DEPT: SURGICAL PATHOLOGY RECD BY: Junior Longoria ENTERED: 12/21/24 12:02 SP TYPE: EGD BIOPSY OTHR DR: Sarah Ibrahim, YARDER-C Tissues: A - Gastric mucous membrane B - Duodenum, NOS C - COLON BIOPSY Procedures: Immunohistochemical Stains Surgery Specimen Level IV HEADER OPERATION: Colonoscopy with biopsy, EGD with biopsy PRE-OP DIAGNOSIS: GI bleed TISSUE SUBMITTED: A- Gastric body biopsy, B- Duodenal biopsy, C- Random colon biopsy MICROSCOPIC DIAGNOSIS A. 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 IHC negative for H.pylori organisms. Note: The findings are suggestive of gastric metaplasia/heterotopia in a biopsy of small intestinal mucosa. Alternatively, the biopsy could have been obtained from the gastroduodenal junction. However, no oxyntic (body) gastric mucosa is observed . B. Duodenum, biopsy: Normal villous architecture with Kj gland hyperplasia Negative for increased intraepithelial lymphocytes. C. Colon, random, biopsy: Focal active colitis without crypt architectural distortion - see note. The histologic features of microscopic colitis are not demonstrated. Note: The histologic differential diagnosis includes bowel prep artifact, medication injury reaction, infection, and ischemia. Recommend correlation with clinical and endoscopic findings. MICROSCOPIC DESCRIPTION Slides are reviewed. All matched controls reacted appropriately. These tests were developed and their performance characteristics determined by [facility]. They may not have been cleared or approved by the U.S. Food and Drug Administration. The FDA has determined that such clearance or approval is not necessary. The above immunohistochemical/dualISH markers are viewed by the Pathologist. GROSS DESCRIPTION Received in 3 formalin containers labeled with the patient's name and date of . Designated as: A. Gastric body BX for H. pylori and path are 2 gutierrez tissue fragments, 0.5 cm each. Entirely submitted in 1 cassette. B. Duodenal BX is a 0.5 cm friable gutierrez tissue fragment admixed with minimal flocculent material. Entirely submitted in 1 cassette. C. Random colon BX are 4 gutierrez tissue fragments, 0.3 cm to 0.7 cm. Entirely submitted in 1 cassette. [facility] [place] 12/21/2024 CPT:76339i2,51028
--- NOTE | 2024-12-20 16:02 | OP.EGD_ITS ---
Patient Name: Mili Townsend Procedure Date: 12/20/2024 2:59 PM Date of : 1965 Age: 59 Procedure: Upper GI endoscopy Indications: Epigastric abdominal pain, Iron deficiency anemia Providers: Kevin Childers DO Referring MD: Julita Devine Medicines: Monitored Anesthesia Care Patient Profile: This is a 59 year old female. Refer to note in patient chart for documentation of history and physical. Patient has symptoms of chronic abdominal cramping and chronic global abdominal pain. Complications: No immediate complications. Procedure: Pre-Anesthesia Assessment: - Prior to the procedure, a History and Physical was performed, and patient medications and allergies were reviewed. The patient is competent. The risks and benefits of the procedure and the sedation options and risks were discussed with the patient. All questions were answered and informed consent was obtained. Patient identification and proposed procedure were verified by the physician in the pre-procedure area. Mental Status Examination: alert and oriented. Airway Examination: normal oropharyngeal airway and neck mobility. Respiratory Examination: clear to auscultation. CV Examination: normal. ASA Grade Assessment: II - A patient with mild systemic disease. After reviewing the risks and benefits, the patient was deemed in satisfactory condition to undergo the procedure. The anesthesia plan was to use monitored anesthesia care (MAC). Immediately prior to administration of medications, the patient was re-assessed for adequacy to receive sedatives. The heart rate, respiratory rate, oxygen saturations, blood pressure, adequacy of pulmonary ventilation, and response to care were monitored throughout the procedure. The physical status of the patient was re-assessed after the procedure. After obtaining informed consent, the endoscope was passed under direct vision. Throughout the procedure, the patient's blood pressure, pulse, and oxygen saturations were monitored continuously. The Colonoscope was introduced through the mouth, and advanced to the fourth part of the duodenum. Small bowel enteroscopy was deemed necessary. The upper GI endoscopy was accomplished without difficulty. The patient tolerated the procedure well. Scope In: 3:14:40 PM Scope Out: 3:18:32 PM Total Procedure Duration Time 0 hours 3 minutes 52 seconds Findings: The examined esophagus was normal. Diffuse moderate inflammation characterized by congestion (edema) was found in the entire examined stomach. Biopsies were taken with a cold forceps for histology. Verification of patient identification for the specimen was done. Estimated blood loss was minimal. Biopsies were taken with a cold forceps for Helicobacter pylori testing. Verification of patient identification for the specimen was done. Estimated blood loss was minimal. No gross lesions were noted in the entire examined duodenum. Biopsies were taken with a cold forceps for histology. Verification of patient identification for the specimen was done. Estimated blood loss was minimal. Impression: - Normal esophagus. - Atrophic gastritis. Biopsied. - No gross lesions in the entire examined duodenum. Biopsied. Recommendation: - Discharge patient to home. - Resume previous diet. - Continue present medications. - Await pathology results. Procedure Code(s): --- Professional --- 40461, Small intestinal endoscopy, enteroscopy beyond second portion of duodenum, not including ileum; with biopsy, single or multiple CPT copyright 2021 [employer]. All rights reserved. The codes documented in this report are preliminary and upon plaster form maker review may be revised to meet current compliance requirements. Kevin Childers DO 12/20/2024 4:02:16 PM This report has been signed electronically. Number of Addenda: 0 Note Initiated On: 12/20/2024 2:59 PM
--- NOTE | 2024-12-20 16:03 | OP.CCLET_ITS ---
12/20/2024 Julita Devine Re : Upper GI endoscopy procedure for Mili Auguster Patrice This procedure was performed on Friday, December 20, 2024. My impressions and recommendations are as follows: Impressions : - Normal esophagus. - Atrophic gastritis. Biopsied. - No gross lesions in the entire examined duodenum. Biopsied. Recommendations : - Discharge patient to home. - Resume previous diet. - Continue present medications. - Await pathology results. My findings are described in the full procedure note, which is enclosed. If I can be of further assistance, please feel free to contact me at . Sincerely, Kevin Childers, 12/20/2024 4:02:16 PM This report has been signed electronically.
--- NOTE | 2024-12-20 16:05 | OP.COLON_ITS ---
Patient Name: Mili Townsend Procedure Date: 12/20/2024 3:18 PM Date of : 1965 Age: 59 Procedure: Colonoscopy Indications: Evaluation of unexplained GI bleeding presenting with Hematochezia Providers: Kevin Childers DO Referring MD: Julita Devine Medicines: Monitored Anesthesia Care Patient Profile: This is a 59 year old female. Refer to note in patient chart for documentation of history and physical. Patient has symptoms of chronic abdominal cramping and chronic global abdominal pain. Last Colonoscopy: 10 years ago. Complications: No immediate complications. Procedure: Pre-Anesthesia Assessment: - Prior to the procedure, a History and Physical was performed, and patient medications and allergies were reviewed. The patient is competent. The risks and benefits of the procedure and the sedation options and risks were discussed with the patient. All questions were answered and informed consent was obtained. Patient identification and proposed procedure were verified by the physician in the pre-procedure area. Mental Status Examination: alert and oriented. Airway Examination: normal oropharyngeal airway and neck mobility. Respiratory Examination: clear to auscultation. CV Examination: normal. ASA Grade Assessment: II - A patient with mild systemic disease. After reviewing the risks and benefits, the patient was deemed in satisfactory condition to undergo the procedure. The anesthesia plan was to use monitored anesthesia care (MAC). Immediately prior to administration of medications, the patient was re-assessed for adequacy to receive sedatives. The heart rate, respiratory rate, oxygen saturations, blood pressure, adequacy of pulmonary ventilation, and response to care were monitored throughout the procedure. The physical status of the patient was re-assessed after the procedure. After I obtained informed consent, the scope was passed under direct vision. Throughout the procedure, the patient's blood pressure, pulse, and oxygen saturations were monitored continuously. The Colonoscope was introduced through the anus and advanced to the cecum, identified by appendiceal orifice and ileocecal valve. The colonoscopy was performed without difficulty. The patient tolerated the procedure well. The quality of the bowel preparation was good. The ileocecal valve, appendiceal orifice, and rectum were photographed. Scope In: 3:21:05 PM Scope Withdrawal Time 0 hours 10 minutes 40 seconds Scope Out: 3:44:27 PM Total Procedure Duration Time 0 hours 23 minutes 22 seconds Findings: The perianal and digital rectal examinations were normal. Multiple small-mouthed diverticula were found in the recto-sigmoid colon, sigmoid colon and descending colon. Non-bleeding internal hemorrhoids were found during retroflexion. The hemorrhoids were Grade II (internal hemorrhoids that prolapse but reduce spontaneously). An area of mildly congested mucosa was found in the rectum, in the recto-sigmoid colon, in the sigmoid colon and in the descending colon. Biopsies were taken with a cold forceps for histology. Verification of patient identification for the specimen was done. Estimated blood loss was minimal. Impression: - Diverticulosis in the recto-sigmoid colon, in the sigmoid colon and in the descending colon. - Non-bleeding internal hemorrhoids. - Congested mucosa in the rectum, in the recto-sigmoid colon, in the sigmoid colon and in the descending colon. Biopsied. Recommendation: - Discharge patient to home. - Resume previous diet. - Continue present medications. - Await pathology results. - Repeat colonoscopy in 5 years for surveillance. Procedure Code(s): --- Professional --- 85815, Colonoscopy, flexible; with biopsy, single or multiple CPT copyright 2021 [employer]. All rights reserved. 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 Kevin Childers DO 12/20/2024 4:04:30 PM This report has been signed electronically. Number of Addenda: 0 Note Initiated On: 12/20/2024 3:18 PM
--- NOTE | 2024-12-20 16:05 | OP.CCLET_ITS ---
12/20/2024 Julita Devine Re : Colonoscopy procedure for Mili Hawkins Patrice This procedure was performed on Friday, December 20, 2024. My impressions and recommendations are as follows: Impressions : - Diverticulosis in the recto-sigmoid colon, in the sigmoid colon and in the descending colon. - Non-bleeding internal hemorrhoids. - Congested mucosa in the rectum, in the recto-sigmoid colon, in the sigmoid colon and in the descending colon. Biopsied. Recommendations : - Discharge patient to home. - Resume previous diet. - Continue present medications. - Await pathology results. - Repeat colonoscopy in 5 years for surveillance. My findings are described in the full procedure note, which is enclosed. If I can be of further assistance, please feel free to contact me at . Sincerely, Kevin Childers, 12/20/2024 4:04:30 PM This report has been signed electronically.
--- NOTE | 2024-12-20 16:50 | PCM.POST.ANE ---
Anesthesia: Postop Eval I Current Vital Signs Temperature: 97.2 F Pulse Rate: 88 Blood Pressure: 118/89 Respiratory Rate: 16 Pulse Ox: 98 Assessment Airway patent: Yes Spontaneous unlabored respirations: Yes Mental status: Awake nausea: No Vomiting: No Anesthesia Complication: No Fluid Hydration Crystalloid volume administer (ml): 100 Total IV fluid infused: 100 Progress Note Anesthesia document: Postop Eval 1 completed: Yes
--- NOTE | 2024-12-20 16:57 | PCM.POSTANE2 ---
Anesthesia Postop Eval I Sum Postop Eval Completion status Anesthesia document: Postop Eval 1 completed: Yes Anesthesia Postop Eval I Summary Anesthesia Postop Eval I Summary: Anesthesia Postop Eval I: Assessment Summary Airway patent Yes 12/20/24 16:51 Spontaneous unlabored Yes 12/20/24 16:51 respirations Mental status Awake 12/20/24 16:51 nausea No 12/20/24 16:51 Vomiting No 12/20/24 16:51 Anesthesia Postop Eval I: Fluid Summary Crystalloid volume administer 100 12/20/24 16:51 (ml) Colloids volume administered ( ml) Blood Product volume administered (ml) Total IV fluid infused 100 12/20/24 16:51 Anesthesia Postop Eval I: Summary Notes Anesthesia Complication No 12/20/24 16:51 Anesthesia Complication Comment: Post-operative progress note Anesthesia: Postop Eval II Evaluation Mental status: Awake Pain Level: 0 nausea: No Vomiting: No
== END 2024-12-20 16:36 | disposition home or self-care (01) ==
LOC: EN 13:40 → AC 13:41
PROVIDERS: PCP Nurse Practitioner Family; Referring Provider Nurse Practitioner Family; Visit Provider Internal Medicine Gastroenterology
PROC: 0DJD8ZZ Inspection of Lower Intestinal Tract, Via Natural or Artificial Opening Endoscopic (ICD-10-PCS; CPT 45378; principal; 2024-12-20 14:40)
DX: K31.A0 Gastric intestinal metaplasia, unspecified (principal); E11.9 Type 2 diabetes mellitus without complications; K21.9 Gastro-esophageal reflux disease without esophagitis; Z79.84 Long term (current) use of oral hypoglycemic drugs; D50.9 Iron deficiency anemia, unspecified; E78.00 Pure hypercholesterolemia, unspecified; K29.40 Chronic atrophic gastritis without bleeding; Z79.899 Other long term (current) drug therapy; E03.9 Hypothyroidism, unspecified; Z79.890 Hormone replacement therapy; K64.1 Second degree hemorrhoids; K57.30 Diverticulosis of large intestine without perforation or abscess without bleeding; K52.9 Noninfective gastroenteritis and colitis, unspecified
CPT/HCPCS: 45380; 43239; 82962; 88305; 88342; J2405